=== PATIENT | male | born 1980 | race Caucasian/White ===

== ENCOUNTER 2022-11-09 17:06 | Emergency (ER) | payer SELFPAY ==
[~2022-11-09] VITALS: Ht 170.2 cm; Wt 80.7 kg
--- NOTE | 2022-11-09 17:34 | NUR ---
PT CALLED FOR TRIAGE, NO ANSWER IN LOBBY
[2022-11-09 18:27] VITALS: BP_SYST 149; PULSE 89; RESP 18; TEMP 98; O2SAT 98
--- NOTE | 2022-11-09 19:41 | NUR ---
MADE CALL OUT TO LOBBY, NO ANSWER IN ER AND OUTSIDE NOT SEE BY ER PHYSICIAN
[2022-11-10] MEDS ORDERED: CEPH250C PO (02:22)
== END 2022-11-09 19:41 | disposition left against medical advice (07) ==
LOC: SED 17:06
DX: M79.89 Other specified soft tissue disorders (principal); Z53.21 Procedure and treatment not carried out due to patient leaving prior to being seen by health care provider
CPT/HCPCS: 99281

== ENCOUNTER 2022-11-09 23:52 | Emergency (ER) | payer SELFPAY ==
[~2022-11-09] VITALS: Ht 170.2 cm; Wt 81.6 kg
[2022-11-10 00:10] VITALS: BP_SYST 136; PULSE 89; RESP 18; TEMP 98.4; O2SAT 98
--- NOTE | 2022-11-10 00:17 | NUR ---
Patient triaged and placed in waiting room. VSS and patient appears in no acute distress at this time. Accompanied by SELF, awaiting available bed, and MD notified of need for MSE.
--- NOTE | 2022-11-10 01:13 | NUR ---
Patient to ER bed 05 to gown for evaluation. Side rails up. Report given to JUDI PEREZ.
--- NOTE | 2022-11-10 01:30 | NUR ---
Pt BIB family to ED C/O right lower extremity pain and swelling. Both patient and ex-girlfriend were interviewed, with unknown chronicity of his symptoms. They report that they noticed symptoms of a red rash yesterday, but are unsure if it was there longer than yesterday. They also report chronic swelling and chronic pain of the right lower extremity
--- NOTE | 2022-11-10 01:50 | NUR ---
Bedside US study well tolerated.
[2022-11-10] MEDS ORDERED: CEPH250C PO (02:22)
[2022-11-10 02:50] VITALS: BP_SYST 136; PULSE 89; RESP 18; TEMP 98.4; O2SAT 98
--- NOTE | 2022-11-10 02:50 | NUR ---
Patient given written and verbal discharge instructions and verbalizes understanding. ER MD discussed with patient the results and treatment provided. Patient in stable condition. ID arm band removed. Patient educated on pain management and to follow up with PMD. Pain Scale 0/10 Opportunity for questions provided and answered. Medication side effect fact sheet provided.
== END 2022-11-10 02:50 | disposition home or self-care (01) ==
LOC: SED 23:52
DX: L03.115 Cellulitis of right lower limb (principal); R60.0 Localized edema; M25.571 Pain in right ankle and joints of right foot; Z79.899 Other long term (current) drug therapy
CPT/HCPCS: 93971; 99284